=== PATIENT | male | born 1990 ===

== ENCOUNTER 2021-03-19 16:23 | Emergency (ER) | payer OTHER ==
--- NOTE | 2021-03-19 16:39 | NUR ---
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
--- NOTE | 2021-03-19 19:00 | NUR ---
NOT IN LOBBY
--- NOTE | 2021-03-19 19:15 | NUR ---
NOT IN LOBBY
== END 2021-03-19 20:23 | disposition left against medical advice (07) ==
LOC: ED 16:30
DX: R42 Dizziness and giddiness (principal); R07.89 Other chest pain; Z53.21 Procedure and treatment not carried out due to patient leaving prior to being seen by health care provider